=== PATIENT | male | born 1960 | race Caucasian/White ===

== ENCOUNTER → 2016-10-30 | Outpatient (CLI) | payer BC ==
[~2016-10-30] MED LIST: NOHOMEMEDICATIONS; PERCOCET 5-3251 EACH PO
== END ==
LOC: RAD 16:06
DX: R04.2 Hemoptysis (principal)

== ENCOUNTER → 2016-11-06 | Outpatient (CLI) | payer BC | LOC: CAT 07:51 | DX: R04.2 Hemoptysis (principal) ==

== ENCOUNTER 2017-09-11 15:57 | Inpatient (IN) | payer BC ==
[~2017-09-11] VITALS: Ht 203.2 cm; Wt 128.4 kg
--- NOTE | ~2017-09-11 | 2DMMODE ---
[facility] [place] [address] 2 D/M-MODE ECHOCARDIOGRAM Name: RELL GUZMÁN Room #: 204-P [facility] IN ..#: [id number] Admission: 09/11/17 Attend Phys: Saeed Thomas, Discharge: Date of : 64 Date of Service: 09/12/17 1051 Report #: [id number] THIS REPORT FOR: //name// APPROVED REPORT Study performed: 09/12/2017 09:14:42 EXAM: Comprehensive 2D, Doppler, and color-flow Echocardiogram Patient Location: Bedside Room #: [facility] Status: routine BSA: 2.67 HR: 105 bpm BP: 120/81 mmHg Rhythm: NSR Other Information Study Quality: Technically Difficult Technically limited study due to body habitus, poor endocardial definition, inability to position patient. Indications Pulmonary Embolism Hypertension/HDD Echo Enhancing Agent Indication: Endocardial border delineation Agent(s) / Amount(s) Used: Optison 4 cc Aortic Valve AoV Peak Mickey.: 0.99 m/s AO Peak Gr.: 3.95 mmHg LVOT Max P.83 mmHg LVOT Max V: 0.98 m/s Pulmonary Valve PV Peak Mickey.: 0.94 m/s PV Peak Gr.: 3.53 mmHg Left Ventricle Left ventricular systolic function is normal. LVEF is 60-65%. This study is not technically sufficient to allow evaluation of the LV diastolic function. Right Ventricle Right ventricle is at the upper limits of normal. Right ventricular systolic function is grossly normal. [facility] [address] [place] [address] 2 D/M-MODE ECHOCARDIOGRAM Name: RELL GUZMÁN Room #: 204-P [facility] IN M.R.#: [id number] Admission: 09/11/17 Attend Phys: Saeed Thomas, Discharge: Date of : 64 Date of Service: 09/12/17 1051 Report #: [id number] Atria Left atrium is not well visualized. Right atrium is not well visualized. Aortic Valve Aortic valve is not well visualized. No aortic regurgitation is present. There is no aortic valvular stenosis. Mitral Valve Mitral valve is not well visualized. There is no mitral valve regurgitation noted. No evidence of mitral valve stenosis. Tricuspid Valve Tricuspid valve is not well visualized. There is no tricuspid valve regurgitation noted. Pulmonic Valve Pulmonic valve is not well visualized. Trace pulmonic regurgitation. Great Vessels Aortic root is not well visualized. IVC is not well visualized. <Conclusion> Left ventricular systolic function is normal. LVEF is 60-65%. This study is not technically sufficient to allow evaluation of the LV diastolic function. Right ventricle is at the upper limits of normal.mild hypo Left atrium is not well visualized. Right atrium is not well visualized. Aortic valve is not well visualized. No aortic regurgitation is present. There is no aortic valvular stenosis. There is no mitral valve regurgitation noted. There is no tricuspid valve regurgitation noted. There is no aortic valvular stenosis. There is no mitral valve regurgitation noted. <ELECTRONICALLY SIGNED> By: Saeed Thomas MD, FACC 09/12/17 105 50 105 Saeed Thomas MD, FACC /INF
--- NOTE | ~2017-09-11 | EKG ---
[address] [place] [address] ELECTROCARDIOGRAM REPORT Name: RELL GUZMÁN Room #: 204-P ADM IN M.R.#: [id number] Admission: 09/11/17 Attend Phys: Saeed Thomas MD, Discharge: Date of : 64 Report #: [id number] THIS REPORT FOR: //name// [facility] ED Test Date: 2017-09-11 Test Time: 16:22:02 Pat Name: RELL GUZMÁN Department: Room: 204 Gender: M Exhauster: GABRIELA : 1960 Requested By: Bc Rivera Order Number: [id number] MD: Mark Ocampo Measurements Intervals [place] Rate: 114 P: 15 AR: 156 QRS: -50 QRSD: 99 T: -3 QT: 315 QTc: 434 Interpretive Statements Sinus tachycardia Left axis deviation ST elev, probable normal early repol pattern No previous ECG available for comparison Electronically Signed On 09-12-2017 8:10:02 CORRECTIONAL MANAGER by Mark Ocampo [email or web address] <ELECTRONICALLY SIGNED> By: Mark Ocampo MD 09/12/17 0810 21 21 Mark Ocampo MD /WILLY
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
[2017-09-11 16:02] VITALS: BP 108/79
[2017-09-11 16:46] LABS: HEMATOCRIT 38.6 % (42.0-52.0); HEMOGLOBIN 12.4 gm/dL (14.0-18.0); MCHC 32.1 g/dL (28.0-37.0); MCV 65.3 fL (80.0-100.0); PLATELET COUNT 417 thou/uL (150-400); RBC 5.92 mil/uL (4.50-6.00); RDW 14.5 % (10.5-14.5); WBC 14.2 thou/uL (4.0-11.0)
[2017-09-11 16:56] LABS: ANION GAP 6 mmol/L (7-16); BUN 20 mg/dL (7-18); CALCIUM 9.7 mg/dL (8.5-10.1); CHLORIDE 97 mmol/L (98-107); CO2 32 mmol/L (21-32); CREATININE 1.3 mg/dL (0.7-1.3); GLUCOSE 117 mg/dL (74-106); POTASSIUM 4.5 mmol/L (3.5-5.1); SODIUM 135 mmol/L (136-145)
[2017-09-11] MEDS ORDERED: BYSTOLIC 5 MG5 M1 PO (16:56)
[2017-09-11 17:05] LABS: ALBUMIN 3.8 g/dL (3.4-5.0); SGOT 22 U/L (15-37); SGPT 42 U/L (30-65); TOTAL BILIRUBIN 1.2 mg/dL (<0.1-1.0); TOTAL PROTEIN 8.5 g/dL (6.4-8.2); TROPONIN-I < 0.04 ng/mL (<0.06)
[2017-09-11 17:11] LABS: ABSOLUTE NEUTROPHILS 11.1 thou/uL (1.4-8.2); ANISOCYTOSIS 1+; HYPOCHROMASIA 2+; MICROCYTES 2+; PLATELET ESTIMATE INCREASED
[2017-09-11 17:59] VITALS: BP 104/80
[2017-09-11 18:11] LABS: APTT 33.7 Seconds (24.5-32.8); INR 1.1; PROTIME 10.8 Seconds (9.3-11.4)
[2017-09-11 18:18] VITALS: BP 104/80
[2017-09-11 19:36] VITALS: BP 127/83
[2017-09-12 00:08] VITALS: BP 123/82
[2017-09-12] MEDS ORDERED: EDARBI40 MG PO (02:48)
[2017-09-12 03:36] VITALS: BP 121/77
[2017-09-12 07:16] VITALS: BP 120/81
[2017-09-12 11:20] VITALS: BP 118/78
[2017-09-12 15:41] VITALS: BP 119/66
[2017-09-12 20:35] VITALS: BP 105/63
[2017-09-13] VITALS: BP 96/61
[2017-09-13 04:45] VITALS: BP 99/64
[2017-09-13 07:42] VITALS: BP 118/73
[2017-09-13 11:16] VITALS: BP 143/88
[2017-09-13 11:46] LABS: URINE BLOOD NEGATIVE (Negative); URINE CLARITY CLEAR; URINE GLUCOSE-RANDOM* NEGATIVE (Negative); URINE KETONES NEGATIVE (Negative); URINE LEUKOCYTES-REFLEX NEGATIVE (Negative); URINE NITRITE-REFLEX NEGATIVE (Negative); URINE PROTEIN (DIPSTICK) TRACE (Negative); URINE SPECIFIC GRAVITY >= 1.030 (1.005-1.035); URINE UROBILINOGEN 0.2 E.U./dl (0.2-1.0)
[2017-09-13 11:48] LABS: ICTOTEST (BILI CONFIRMATORY) Negative (Negative); URINE BILIRUBIN NEGATIVE (Negative); URINE COLOR AMBER
[2017-09-13 12:38] LABS: HEMATOCRIT 33.9 % (42.0-52.0); HEMOGLOBIN 11.1 gm/dL (14.0-18.0); MCH 21.2 pg (26.0-34.0); MCHC 32.6 g/dL (28.0-37.0); MCV 65.1 fL (80.0-100.0); RBC 5.21 mil/uL (4.50-6.00); RDW 14.5 % (10.5-14.5)
[2017-09-13 15:13] VITALS: BP 102/53
[2017-09-13 19:36] VITALS: BP 116/58
[2017-09-14 04:06] VITALS: BP 122/60
[2017-09-14 05:25] LABS: HEMATOCRIT 31.5 % (42.0-52.0); HEMOGLOBIN 10.1 gm/dL (14.0-18.0); MCH 20.8 pg (26.0-34.0); MCHC 32.2 g/dL (28.0-37.0); MCV 64.7 fL (80.0-100.0); RBC 4.87 mil/uL (4.50-6.00); RDW 14.3 % (10.5-14.5); WBC 8.5 thou/uL (4.0-11.0)
[2017-09-14 07:18] VITALS: BP 119/60
[2017-09-14] MEDS ORDERED: ELIQUIS5 MG PO (09:38)
[2017-09-14 11:08] VITALS: BP 110/53
[2017-09-14 15:08] VITALS: BP 107/65
[2017-09-14 19:45] VITALS: BP 127/69
[2017-09-15 04:00] VITALS: BP 113/64
[2017-09-15 07:36] VITALS: BP 123/72; BP 129/74
[2017-09-15] MEDS ORDERED: ENOXAPARIN30 MG/0.1 SUBQ (09:24)
[2017-09-15] MEDS ORDERED: ENOXAPARIN100 MG/11 SUBQ (09:24)
[2017-09-15] MEDS ORDERED: ELIQUIS5 MG PO (09:26)
[2017-09-15 10:27] VITALS: BP 129/74
[2017-09-15 11:08] VITALS: BP 129/74
[2017-09-15 16:39] VITALS: BP 129/74
[2017-12-03] MEDS ORDERED: ELIQUIS5 MG PO (11:44)
== END 2017-09-15 12:04 | disposition home or self-care (01) | DRG 176 ==
LOC: ER 15:57 → EROBS 17:48 → 2N 17:48
PROVIDERS: Hospitalist; Internal Medicine Pulmonary Disease; Nurse Practitioner Adult Health; Physician Assistant
DX: I26.99 Other pulmonary embolism without acute cor pulmonale (principal); J98.11 Atelectasis; R04.2 Hemoptysis; I10 Essential (primary) hypertension; K59.00 Constipation, unspecified; E86.0 Dehydration; R91.1 Solitary pulmonary nodule; Z90.49 Acquired absence of other specified parts of digestive tract; Z79.899 Other long term (current) drug therapy; Z88.5 Allergy status to narcotic agent; Z88.6 Allergy status to analgesic agent; Z88.0 Allergy status to penicillin; Z91.040 Latex allergy status
CPT/HCPCS: 10081

== ENCOUNTER → 2017-11-08 | Outpatient (CLI) | payer BC ==
[~2017-11-08] MED LIST changes: +BYSTOLIC 5 MG5 M1 PO; +EDARBI40 MG PO; +ELIQUIS5 MG PO; +ENOXAPARIN100 MG/11 SUBQ; +ENOXAPARIN30 MG/0.1 SUBQ
== END ==
LOC: RAD 11:36
DX: R06.02 Shortness of breath (principal); R05 Cough; Z86.711 Personal history of pulmonary embolism

== ENCOUNTER → 2018-06-14 | Outpatient (CLI) | payer OTHER | LOC: CAT 08:12 | DX: Z13.6 Encounter for screening for cardiovascular disorders (principal); E78.00 Pure hypercholesterolemia, unspecified ==

== ENCOUNTER 2021-07-17 08:24 | Emergency (ER) | payer BC ==
[~2021-07-17] VITALS: Ht 203.2 cm; Wt 133.8 kg
[2021-07-17 08:30] VITALS: BP 139/83
[2021-07-17] MEDS ORDERED: NORCO7.5 PO (09:24)
[2021-07-17] MEDS ORDERED: CRUTCHES MISCELL (09:25)
== END 2021-07-17 09:30 | disposition home or self-care (01) ==
LOC: ER 08:24
DX: M76.62 Achilles tendinitis, left leg (principal); M25.572 Pain in left ankle and joints of left foot; I10 Essential (primary) hypertension; Z91.040 Latex allergy status; Z88.0 Allergy status to penicillin; Z88.5 Allergy status to narcotic agent; Z88.6 Allergy status to analgesic agent; Z79.899 Other long term (current) drug therapy; Z90.49 Acquired absence of other specified parts of digestive tract; Z98.890 Other specified postprocedural states